=== PATIENT | male | born 1970 ===

== ENCOUNTER 2024-10-27 09:40 | Inpatient (IN) | payer OTHER ==
[~2024-10-27] VITALS: Ht 152.4 cm; Wt 79.8 kg
[2024-10-27] MEDS ORDERED: COZAAR50 MG PO (09:58)
[2024-10-27] MEDS ORDERED: JANUMET 50-1,01 EACH PO (09:58)
[2024-11-02] MEDS ORDERED: METRONIDAZOLE/SODIUM CHLORIDE 500 MG/100 ML PIGGYBACK IV ONE ×2 (09:41→16:10)
[2024-11-02] MEDS ORDERED: levoFLOXacin IN DEXTROSE 5 % 5 MG/ML PIGGYBAG IV ONE (09:41)
[2024-11-02] MEDS ORDERED: HYDROGEN PEROXIDE 473 ML BOTTLE TOP ONE (11:07)
[2024-11-02] MEDS ORDERED: SUGAMMADEX SODIUM 200 MG/2 ML VIAL IV ONE (12:01)
[2024-11-02] MEDS ORDERED: MORPHINE SULFATE 4 MG/ML CARTRIDGE IV PRN (12:15)
[2024-11-02] MEDS ORDERED: ONDANSETRON HCL 2 MG/ML VIAL IV PRN (12:15)
[2024-11-02] MEDS ORDERED: DEXTROSE 50 % IN WATER 0.5 G/ML DISP.SYRIN IV PRN ×2 (12:15→13:45)
[2024-11-02] MEDS ORDERED: OxyCODONE HCL 5 MG TABLET (ROXICODONE) PO PRN (12:15)
[2024-11-02] MEDS ORDERED: 0.9 % SODIUM CHLORIDE 1,000 ML IV SCH (12:15)
[2024-11-02] MEDS ORDERED: ENALAPRILAT DIHYDRATE 1.25 MG/ML VIAL IV PRN (13:45)
[2024-11-02] MEDS ORDERED: INSULIN LISPRO 1,000 UNIT/10 ML UNITS SUBCUTANEO PRN (13:45)
[2024-11-02] MEDS ORDERED: ACETAMINOPHEN 500 MG GEL..CAP PO SCH (14:00)
[2024-11-02 14:05] LABS: HEMATOCRIT 39.8 % (39.0-48.0); HEMOGLOBIN 13.7 g/dL (13-16.00); MEAN CELL VOLUME 86.3 fL (80.0-100.00); MEAN CORPUSCULAR HEMOGLOBIN 29.7 pg (27.00-32.0); MEAN CORPUSCULAR HGB CONC 34.3 g/dl (32.0-36.0); PLATELET COUNT 254 K/uL (150-450); RED BLOOD COUNT 4.61 M/uL (4.00-6.00); RED CELL DISTRIBUTION WIDTH 13.5 % (11.5-14.5)
[2024-11-02] MEDS ORDERED: MORPHINE SULFATE 4 MG/ML VIAL IV ONE (14:05)
[2024-11-02 14:36] LABS: ALBUMIN 3.8 gm/dL (3.4-5.0); CALCIUM 9.1 mg/dL (8.5-10.1); CREATININE SERUM 0.79 mg/dL (0.70-1.30); GFR 101.83; MAGNESIUM 1.5 mg/dL (1.8-2.4); PHOSPHOROUS 2.8 mg/dL (2.5-4.9); POTASSIUM 4.67 mEq/L (3.5-5.1)
[2024-11-02] MEDS ORDERED: HYOSCYAMINE SULFATE 0.125 MG TAB.SUBL ONE (16:15)
[2024-11-02] MEDS ORDERED: GABAPENTIN 300 MG CAPSULE PO ONE (16:15)
[2024-11-02] MEDS ORDERED: HYOSCYAMINE SULFATE 0.125 MG TAB.SUBL SL SCH (17:00)
[2024-11-02] MEDS ORDERED: GABAPENTIN 300 MG CAPSULE PO SCH (17:00)
[2024-11-02] MEDS ORDERED: METRONIDAZOLE/SODIUM CHLORIDE 500 MG/100 ML PIGGYBACK IV SCH (17:00)
[2024-11-02 17:15] VITALS: BP 132/75; O2SAT 95
[2024-11-02] MEDS ORDERED: FAMOTIDINE/PF 20 MG/2 ML VIAL IV PUSH SCH (21:00)
[2024-11-02] MEDS ORDERED: CELECOXIB 200 MG CAPSULE PO SCH (21:00)
[2024-11-03] VITALS: BP 123/70; O2SAT 95
[2024-11-03 07:35] LABS: HEMATOCRIT 37.4 % (39.0-48.0); MEAN CELL VOLUME 84.7 fL (80.0-100.00); MEAN CORPUSCULAR HEMOGLOBIN 29.6 pg (27.00-32.0); MEAN CORPUSCULAR HGB CONC 34.9 g/dl (32.0-36.0); PLATELET COUNT 252 K/uL (150-450); RED BLOOD COUNT 4.41 M/uL (4.00-6.00); RED CELL DISTRIBUTION WIDTH 13.6 % (11.5-14.5)
[2024-11-03 08:00] VITALS: BP 135/71; O2SAT 97
[2024-11-03 08:25] LABS: ALBUMIN 3.4 gm/dL (3.4-5.0); CREATININE SERUM 0.76 mg/dL (0.70-1.30); GFR 106.48; MAGNESIUM 1.9 mg/dL (1.8-2.4); PHOSPHOROUS 2.5 mg/dL (2.5-4.9); POTASSIUM 4.52 mEq/L (3.5-5.1)
[2024-11-03] MEDS ORDERED: LOSARTAN POTASSIUM 50 MG TABLET PO SCH (09:00)
[2024-11-03] MEDS ORDERED: ENOXAPARIN SODIUM 40 MG/0.4 ML SYRINGE SUBCUTANEO SCH (17:00)
[2024-11-03 17:33] VITALS: BP 123/77; O2SAT 98
[2024-11-04 00:34] VITALS: BP 130/78; O2SAT 96
[2024-11-04 06:23] LABS: HEMATOCRIT 35.4 % (39.0-48.0); HEMOGLOBIN 12.6 g/dL (13-16.00); MEAN CELL VOLUME 84.9 fL (80.0-100.00); MEAN CORPUSCULAR HEMOGLOBIN 30.2 pg (27.00-32.0); MEAN CORPUSCULAR HGB CONC 35.5 g/dl (32.0-36.0); PLATELET COUNT 213 K/uL (150-450); RED BLOOD COUNT 4.16 M/uL (4.00-6.00); RED CELL DISTRIBUTION WIDTH 13.6 % (11.5-14.5)
[2024-11-04 07:10] LABS: CALCIUM 8.4 mg/dL (8.5-10.1); CREATININE SERUM 0.62 mg/dL (0.70-1.30); GFR 134.68; MAGNESIUM 1.7 mg/dL (1.8-2.4); POTASSIUM 3.72 mEq/L (3.5-5.1)
[2024-11-04 07:42] LABS: PHOSPHOROUS 1.7 mg/dL (2.5-4.9)
[2024-11-04 08:00] VITALS: BP 137/84; O2SAT 95
[2024-11-04] MEDS ORDERED: MAGNESIUM SULFATE IN WATER 50 ML IV NR (09:00)
[2024-11-04] MEDS ORDERED: ENOXAPARIN SODIUM 40 MG/0.4 ML SYRINGE SUBCUTANEO SCH (09:00)
[2024-11-04] MEDS ORDERED: POTASSIUM PHOS,M-BASIC-D-BASIC 15 MM in 0.9 % SODIUM CHLORIDE 250 ML IV ONE (11:00)
[2024-11-04 17:00] VITALS: BP 117/78; O2SAT 97
[2024-11-05 01:03] VITALS: BP 111/65; O2SAT 98
[2024-11-05 11:18] VITALS: BP 133/83; O2SAT 95
[2024-11-05] MEDS ORDERED: PEPCID AC20 MG PO (11:48)
[2024-11-05] MEDS ORDERED: TRAM1TAB98 PO (11:48)
[2024-11-05] MEDS ORDERED: HYOSCYAMINE0.125 M1 SL (11:48)
[2024-11-05] MEDS ORDERED: DEXTROSE 50 % IN WATER 0.5 G/ML VIAL IV PRN (14:30)
== END 2024-11-05 14:35 | disposition home or self-care (01) | DRG 331 ==
LOC: SURH 11-02 06:19 → O/R 11-02 06:19 → SURH 11-02 11:30
PROVIDERS: Internal Medicine Geriatric Medicine; ADMIT Surgery; ATTEND Surgery
PROC: 07BB4ZZ Excision of Mesenteric Lymphatic, Percutaneous Endoscopic Approach (ICD-10-PCS; 2024-11-02)
PROC: 0DTF4ZZ Resection of Right Large Intestine, Percutaneous Endoscopic Approach (ICD-10-PCS; principal; 2024-11-02 17:30)
DX: C18.2 Malignant neoplasm of ascending colon (principal); R59.0 Localized enlarged lymph nodes